=== PATIENT | female | born 1985 | race Caucasian/White ===

== ENCOUNTER 2020-06-28 22:06 | Emergency (ER) | payer SELFPAY ==
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
== END 2020-06-29 07:00 | disposition home or self-care (01) ==
LOC: JP.ED 22:06
DX: T74.11XA Adult physical abuse, confirmed, initial encounter (principal); S80.12XA Contusion of left lower leg, initial encounter; S80.11XA Contusion of right lower leg, initial encounter; S40.021A Contusion of right upper arm, initial encounter; S40.022A Contusion of left upper arm, initial encounter; R22.0 Localized swelling, mass and lump, head; R00.0 Tachycardia, unspecified; F17.210 Nicotine dependence, cigarettes, uncomplicated; Z88.6 Allergy status to analgesic agent; Z88.0 Allergy status to penicillin; Z88.8 Allergy status to other drugs, medicaments and biological substances
CPT/HCPCS: 73130-LT; 99283; 99284-25